=== PATIENT | male | born 1930 | race Caucasian/White ===

== ENCOUNTER → 2017-02-20 | Outpatient (CLI) | payer MEDICARE, OTHER ==
--- NOTE | ~2017-02-20 | ECH ---
Transthoracic Echocardiography Report (TTE) Demographics Patient Name VIOLETTE SEWELL Date of Study 02/20/2017 W Patient Number [id number] Visit Number [id number] Date of 1930 Room Number Accession Number [id number] Gender Male Age 86 year(s) Referring Nghia Soto MD [employer] May Sewell [facility] Physician Physician Bhargavi Boykin MD Complaint Evaluation Supervisor Physician Lamonte Supervising Ordering Physician Nghia Soto MD, MD/MLP Nurse Stress Waterproofer Conclusions Contractility Score Summary Normal Left Ventricular contractility was noted. Summary Technically fair exam. The estimated left ventricular ejection fraction is 60-65%. Mild left ventricular hypertrophy. Diastolic assessment reveals Grade I diastolic dysfunction. Mild mitral regurgitation by color Doppler. There is trivial aortic regurgitation by color Doppler. Mild tricuspid regurgitation by color Doppler. There is mild pulmonary hypertension. The pulmonary pressure (RVSP) is 39 mmHg. The ascending aorta appears mildly dilated. The maximum diameter measures 4.36 cm. Recommendation The patient will be given the results of this study by the physician who ordered the exam. Procedure Type of Study TTE procedure:Echo Complete SF. Procedure Date Date: 02/20/2017 Start: 01:24 PM Technical Quality: Fair due to body habitus. Indications:Bilateral lower extremity edema. Appropriate Use Criteria: 9 Height: 70 inches Weight: 214 pounds BSA: 2.15 m Rhythm: Within normal limits HR: 74 bpm BP: 124/68 mmHg M-Mode/2D Measurements LV Diastolic Dimension: 5.35 cm LV Systolic Dimension: 3.57 cm LV Septum Diastolic: 1.24 cm LV PW Diastolic: 1.12 cm AO Root Dimension: 3 cm Cardiac Output: 6.38 l/min LA Dimension: 4.76 cm Cardiac Index: 2.97 l/min*m RV Diastolic Dimension: 4.13 cm LA volume index: 33 ml/m LVOT: 2.28 cm LVOT VTI: 21.13 cm RV Base: 3.45 cm LV Stroke volume: 86.23 ml RV Mid: 3.1 cm LV Stroke volume index: 40.11 ml/m RV Length: 7.7 cm Doppler Measurements AV Peak Velocity: 1.1 m/s MV Peak E-Wave: 0.58 m/s AV Peak Gradient: 4.84 mmHg MV Peak A-Wave: 0.71 m/s AV Mean Gradient: 2.96 mmHg MV E/A Ratio: 0.82 LVOT Peak Velocity: 0.94 m/s MV P1/2t: 91.7 msec AV Area (Continuity):4.21 cm MV Deceleration Time: 323.2 msec TR Velocity:2.9 m/s MV Area (PHT): 2.4 cm TR Gradient:33.66 mmHg Estimated RAP:5 mmHg Estimated PASP: 38.66 mmHg Estimated RVSP: 39 mmHg RA Area: 11.44 cm Findings Left Ventricle The left ventricle is normal in size . Mild left ventricular hypertrophy. Diastolic assessment reveals Grade I diastolic dysfunction. Right Ventricle Normal right ventricle structure and function. Left Atrium Normal left atrial size. Right Atrium Normal right atrial size. Mitral Valve Normal mitral valve structure and function. Mild mitral regurgitation by color Doppler. Aortic Valve The aortic valve is mildly sclerotic. There is trivial aortic regurgitation by color Doppler. Tricuspid Valve Normal tricuspid valve structure and function. Mild tricuspid regurgitation by color Doppler. There is mild pulmonary hypertension. The pulmonary pressure (RVSP) is 39 mmHg. Pulmonic Valve Normal pulmonic valve structure and function. Pericardial Effusion No evidence of pericardial effusion. Miscellaneous The ascending aorta appears mildly dilated. The maximum diameter measures 4.36 cm. Pleural Effusion No evidence of pleural effusion. Contractility Score LV regional wall motion:(0-Non visualized 1-Normal 2-Hypokinesis 3-Akinesis 4-Dyskinesis 5-Aneurysm) Signature
== END | disposition home or self-care (01) ==
LOC: CARD 12:52
DX: R60.0 Localized edema (principal); I51.7 Cardiomegaly; I34.0 Nonrheumatic mitral (valve) insufficiency; I07.1 Rheumatic tricuspid insufficiency; I27.2 Other secondary pulmonary hypertension